=== PATIENT | male | born 1955 | race Caucasian/White ===

== ENCOUNTER 2020-04-30 17:30 | Emergency (ER) | payer OTHER ==
[2020-04-30] MEDS ORDERED: Multivitamins, Adult 10 ML, Thiamine HCl 100 MG, Folic Acid 1 MG in Dextrose 5 %-0.45 %... IV SCH (18:45)
[2020-04-30 18:49] LABS: #Eosinphils 0.5 10x3/uL (0.0-0.5); #Monocytes 0.6 10x3/uL (0.0-1.1); %Basophils 0.4 % (0.0-2.0); %Eosinophils 5.7 % (0.0-6.0); %Lymphocytes 11.6 % (18.0-47.0); %Monocytes 6.8 % (0.0-10.0); %Neutrophils 74.7 % (40.0-75.0); ALT (SGPT) 23 U/L (8-55); AST (SGOT) 27 U/L (5-34); Albumin 4.1 g/dL (3.4-4.8); Alkaline Phosphatase 92 U/L (40-110); Anion Gap 14 mmol/L (10-20); BUN (Urea Nitrogen) 20 mg/dL (8.4-25.7); Bilirubin, Total 0.6 mg/dL (0.2-1.2); CK (CPK) 27 U/L (30-200); Calc. Creatinine Clearance 0 mL/min (70-130); Calcium 9.1 mg/dL (7.8-10.44); Carbon Dioxide 28 mmol/L (23-31); Chloride 103 mmol/L (98-107); Globulin 2.2 g/dL (2.4-3.5); Glucose 98 mg/dL (80-115); Hemoglobin 12.5 g/dL (13.5-17.5); Mean Corpuscular HGB CONC 32.8 g/dL (32.0-36.0); Mean Corpuscular Hemoglobin 28.9 pg (27.0-33.0); Mean Platelet Volume 9.2 fl (7.4-10.4); Platelet Count 151 10x3/uL (150-450); Potassium 3.8 mmol/L (3.5-5.1); Protein, Total 6.3 g/dL (5.8-8.1); RBC Distribution Width 14.4 % (11.5-14.5); Red Blood Cell (RBC) Count 4.33 10x6/uL (4.32-5.72); Sodium 141 mmol/L (136-145); White Blood Cell (WBC) Count 9.3 10x3/uL (3.5-10.5)
== END 2020-04-30 22:09 | disposition home or self-care (01) ==
LOC: CSHERS 17:30
DX: K57.12 Diverticulitis of small intestine without perforation or abscess without bleeding (principal); M10.9 Gout, unspecified; E03.9 Hypothyroidism, unspecified; Z86.718 Personal history of other venous thrombosis and embolism; Z79.899 Other long term (current) drug therapy
CPT/HCPCS: 71045; 74177; 80053; 82550; 83690; 84484; 85025; 93005; 94760; 96365; 96366; J3411; J7042

== ENCOUNTER 2023-11-02 15:53 | Emergency (ER) | payer BC, MEDICARE ==
[2023-11-02] MEDS ORDERED: HYDROmorphone 0.5 MG/0.5 ML SYRINGE ONE (16:32)
[2023-11-02] MEDS ORDERED: Ondansetron PF 4 MG/2 ML Vial ONE (16:32)
[2023-11-02] MEDS ORDERED: Dexamethasone 10 MG/ML VIAL ONE (17:17)
[2023-11-02] MEDS ORDERED: HYDROcodone/Acetaminophen 5/325 mg Tablet ONE (17:33)
[2023-11-02] MEDS ORDERED: Gabapentin 300 MG CAP ONE (17:38)
[2023-11-02] MEDS ORDERED: Gabapentin 300 MG CAP PO SCH (17:45)
== END 2023-11-02 19:48 | disposition home or self-care (01) ==
LOC: CSHERS 15:53
DX: G89.18 Other acute postprocedural pain (principal); R13.10 Dysphagia, unspecified; M54.2 Cervicalgia; E03.9 Hypothyroidism, unspecified; Z79.899 Other long term (current) drug therapy
CPT/HCPCS: 96374; 96375; J1100; J1170; J2405

== ENCOUNTER 2024-10-22 13:25 | Outpatient (CLI) | payer BC, MEDICARE ==
[2024-10-22 14:11] LABS: Hematocrit 38.4 % (38.8-50.0); Hemoglobin 12.8 g/dL (13.5-17.5); Mean Corpuscular Hemoglobin 30.0 pg (27.0-33.0); Mean Corpuscular Volume 89.9 fL (81.2-95.1); Platelet Count 144 10x3/uL (150-450); Red Blood Cell (RBC) Count 4.27 10x6/uL (4.32-5.72); White Blood Cell (WBC) Count 7.35 10x3/uL (3.5-10.5)
[2024-10-22 14:30] LABS: INR-International Normal Ratio 1.0; PTT 25.5 sec (22.0-33.0); Prothrombin Time 10.5 sec (9.5-12.1)
[2024-10-22 14:37] LABS: Anion Gap 11 mmol/L (10-20); BUN (Urea Nitrogen) 15 mg/dL (8.4-25.7); Calc. Creatinine Clearance 0 mL/min (70-130); Calcium 9.4 mg/dL (7.8-10.44); Carbon Dioxide 31 mmol/L (23-31); Chloride 103 mmol/L (98-107); Glucose 96 mg/dL (83-110); Potassium 4.0 mmol/L (3.5-5.1); Sodium 141 mmol/L (136-145)
== END 2024-10-22 13:26 | disposition home or self-care (01) ==
LOC: CSHLAB 13:25
PROVIDERS: ATTEND Orthopaedic Surgery
DX: Z01.818 Encounter for other preprocedural examination (principal); M54.2 Cervicalgia
CPT/HCPCS: 80048; 85027; 85610; 85730; 86850; 86900; 86901; 93005; 93010

== ENCOUNTER 2024-10-27 09:25 | Observation (INO) | payer BC, MEDICARE ==
[2024-10-22 13:44] VITALS: BMI 26.0
[2024-10-22 14:11] LABS: Hematocrit 38.4 % (38.8-50.0); Hemoglobin 12.8 g/dL (13.5-17.5); Mean Corpuscular Hemoglobin 30.0 pg (27.0-33.0); Mean Corpuscular Volume 89.9 fL (81.2-95.1); Platelet Count 144 10x3/uL (150-450); Red Blood Cell (RBC) Count 4.27 10x6/uL (4.32-5.72); White Blood Cell (WBC) Count 7.35 10x3/uL (3.5-10.5)
[2024-10-22 14:30] LABS: INR-International Normal Ratio 1.0; PTT 25.5 sec (22.0-33.0); Prothrombin Time 10.5 sec (9.5-12.1)
[2024-10-22 14:37] LABS: Anion Gap 11 mmol/L (10-20); BUN (Urea Nitrogen) 15 mg/dL (8.4-25.7); Calc. Creatinine Clearance 0 mL/min (70-130); Calcium 9.4 mg/dL (7.8-10.44); Carbon Dioxide 31 mmol/L (23-31); Chloride 103 mmol/L (98-107); Glucose 96 mg/dL (83-110); Potassium 4.0 mmol/L (3.5-5.1); Sodium 141 mmol/L (136-145)
[2024-10-27] MEDS ORDERED: Famotidine/PF 20 mg/2ml Vial ONE (10:00)
[2024-10-27] MEDS ORDERED: Thrombin 5000 UNITS/5 ML VIAL ONE (11:47)
[2024-10-27] MEDS ORDERED: PROPOFOL 20 ML ONE (12:05)
[2024-10-27] MEDS ORDERED: SUCCINYLCHOLINE/SOD CL,ISO/PF 200 MG/10 ML SYRINGE FS ONE (12:09)
[2024-10-27] MEDS ORDERED: Glycopyrrolate 0.2 MG/ML 5 ML SYRINGE ONE (12:09)
[2024-10-27] MEDS ORDERED: Lidocaine 1% PF 5 ML VIAL ONE (12:09)
[2024-10-27] MEDS ORDERED: Ondansetron PF 4 MG/2 ML Vial ONE (15:05)
[2024-10-27] MEDS ORDERED: HYDROmorphone 0.5 MG/0.5 ML SYRINGE ONE ×2 (17:26→17:50)
[2024-10-27] MEDS ORDERED: [UNRECOGNIZED DRUG - REMARK] IVPB PRN (18:01)
[2024-10-27] MEDS: Gabapentin 400 MG CAP PO SCH (21:23)
[2024-10-27] MEDS: Clindamycin/D5W 900 MG in Premix 1 BAG IVPB SCH (21:28)
[2024-10-28] MEDS ORDERED: Non-Formulary Medication 1 EACH (Mecobalamin [B12 Active] 1,000 MCG Tab.Chew) PO SCH (09:00)
[2024-10-28] MEDS: Allopurinol 300 MG TAB PO SCH (09:37)
[2024-10-28] MEDS: Pantoprazole 40 MG DR.TAB PO SCH (09:37)
[2024-10-28] MEDS: Sertraline 100 MG TAB PO SCH (09:37)
[2024-10-28] MEDS: TETANUS, DIPHTHERIA TOX,ADULT (TDVAX) 0.5 ML VIAL IM ONE (09:38)
[2024-10-28 12:13] VITALS: BP 115/53; TEMP 97.8
== END 2024-10-28 13:27 | disposition home or self-care (01) ==
LOC: CSHSDC 09:25 → CSHTELE 10:03 → EDSTATUS 14:00
PROVIDERS: ADMIT Orthopaedic Surgery; ATTEND Orthopaedic Surgery
PROC: 0RT30ZZ Resection of Cervical Vertebral Disc, Open Approach (ICD-10-PCS; principal; 2024-10-27)
PROC: 0RG40A0 Fusion of Cervicothoracic Vertebral Joint with Interbody Fusion Device, Anterior Approach, Anterior Column, Open Approach (ICD-10-PCS; 2024-10-27)
DX: M50.13 Cervical disc disorder with radiculopathy, cervicothoracic region (principal); M48.02 Spinal stenosis, cervical region; E78.5 Hyperlipidemia, unspecified; Z88.0 Allergy status to penicillin; Z91.048 Other nonmedicinal substance allergy status; Z79.899 Other long term (current) drug therapy
CPT/HCPCS: 72040; 80048; 85027; 85610; 85730; 86850; 86900; 86901; 94760; C1713; C1889; J1100; J1171; J2250; J2704; J3010; J3490

== ENCOUNTER 2025-01-02 15:03 | Emergency (ER) | payer BC ==
[2025-01-02 15:53] LABS: Glucose, Urine (Dipstick) Normal (Negative); Leukocyte Negative (Negative); Protein, Urine (Dipstick) 15 mg/dl (Neg-Trace); Specific Gravity, Urine 1.020 (1.005-1.030)
[2025-01-02 16:03] LABS: CAUTI Indications for Culture Pelvic or flank pain; Mucous/LPF 1+ LPF (<2+); RBC/HPF 0-3 HPF (0-3); WBC/HPF 0-3 HPF (0-3)
[2025-01-02 16:04] LABS: Urine Culture Reflex No No
[2025-01-02 16:25] LABS: #Basophils 0.05 10x3/uL (0.0-0.2); #Eosinophils 0.38 10x3/uL (0.0-0.5); #Monocytes 0.49 10x3/uL (0.0-1.1); #Neutrophils 7.60 10x3/uL (1.5-8.4); %Basophils 0.5 % (0.0-2.0); %Eosinophils 4.1 % (0.0-6.0); %Lymphocytes 8.2 % (18.0-47.0); %Monocytes 5.2 % (0.0-10.0); %Neutrophils 81.5 % (40.0-75.0); Hematocrit 36.1 % (38.8-50.0); Hemoglobin 12.6 g/dL (13.5-17.5); Mean Corpuscular Hemoglobin 30.4 pg (27.0-33.0); Mean Corpuscular Volume 87.0 fL (81.2-95.1); Platelet Count 157 10x3/uL (150-450); Red Blood Cell (RBC) Count 4.15 10x6/uL (4.32-5.72); White Blood Cell (WBC) Count 9.34 10x3/uL (3.5-10.5)
[2025-01-02 16:41] LABS: ALT (SGPT) 11 U/L (Less than 45); AST (SGOT) 19 U/L (11-34); Albumin 4.0 g/dL (3.1-4.5); Alkaline Phosphatase 87 U/L (40-110); Anion Gap 16 mmol/L (10-20); BUN (Urea Nitrogen) 16 mg/dL (8.4-25.7); Bilirubin, Total 0.5 mg/dL (0.3-1.2); Calc. Creatinine Clearance 0 mL/min (70-130); Calcium 8.9 mg/dL (7.8-10.44); Carbon Dioxide 25 mmol/L (23-31); Chloride 104 mmol/L (98-107); Globulin 2.6 g/dL (2.4-3.5); Glucose 103 mg/dL (83-110); Potassium 4.3 mmol/L (3.5-5.1); Sodium 141 mmol/L (136-145)
[2025-01-02 17:24] LABS: Troponin I Less than 0.010 ng/mL (< 0.028)
== END 2025-01-02 18:07 | disposition home or self-care (01) ==
LOC: CSHERS 15:03
DX: K57.12 Diverticulitis of small intestine without perforation or abscess without bleeding (principal); N20.0 Calculus of kidney; E03.9 Hypothyroidism, unspecified; Z79.899 Other long term (current) drug therapy; Z79.890 Hormone replacement therapy
CPT/HCPCS: 36415; 74177; 80053; 81001; 83690; 84484; 85025